=== PATIENT | female | born 1975 | race Caucasian/White ===

== ENCOUNTER → 2017-08-31 13:36 | Outpatient (CLI) | payer OTHER, MEDICAID, SELFPAY ==
[2017-09-01 16:47] LABS: HCG Quantitative /Beta subunit 769.43 mIU/mL
== END ==
PROVIDERS: Visit Provider Obstetrics & Gynecology
DX: N96 Recurrent pregnancy loss (principal); Z34.90 Encounter for supervision of normal pregnancy, unspecified, unspecified trimester
CPT/HCPCS: 36415; 84702

== ENCOUNTER → 2017-09-08 14:44 | Outpatient (CLI) | payer OTHER, MEDICAID, SELFPAY ==
[2017-09-08 17:09] LABS: Free T4, Direct Thyroxine 1.04 ng/dL (0.78-2.19)
[2017-09-08 17:23] LABS: Thyroid Stimulating Hormone 1.36 uIU/mL (0.47-4.68)
[2017-09-10 18:36] LABS: Progesterone 3.3 ng/mL
[2017-09-11 11:51] LABS: PTT-LA Screen 30 seconds (< OR = 40); dDRVVT Screen 34 seconds (< OR = 45)
[2017-09-13 13:51] LABS: Anti Cardio Antibody IgM <12 MPL; Anti Cardiolipin Antibody IgG <14 GPL
[2017-09-13 19:27] LABS: Protein C Antigen 122 % normal (70-140)
[2017-09-14 17:24] LABS: B2-Glycoprotein I IgA AB < 9 SAU (< OR = 20); B2-Glycoprotein I IgG AB < 9 SGU (< OR = 20); B2-Glycoprotein I IgM AB < 9 SMU (< OR = 20); Cardiolipin Ab IgA < 11 APL; Cardiolipin Ab IgG < 14 GPL; Cardiolipin Ab IgM < 12 MPL; Phos. Serine AB IgM < 25 U/mL; dRVVT Screen 32 seconds (< OR = 45)
== END ==
PROVIDERS: PCP Obstetrics & Gynecology; Visit Provider Obstetrics & Gynecology
DX: N96 Recurrent pregnancy loss (principal)
CPT/HCPCS: 36415; 81240; 81241; 81291; 84144; 84439; 84443; 85302; 85306; 85597; 85613; 85730; 86146; 86147; 86148

== ENCOUNTER → 2017-10-12 12:03 | Outpatient (CLI) | payer OTHER, MEDICAID, SELFPAY | PROVIDERS: PCP Obstetrics & Gynecology; Visit Provider Obstetrics & Gynecology | DX: N96 Recurrent pregnancy loss (principal) | CPT/HCPCS: 88230; 88262 ==

== ENCOUNTER → 2018-03-02 12:45 | Outpatient (CLI) | payer OTHER, MEDICAID, SELFPAY ==
[2018-03-02 13:51] LABS: Specimen Label NATERA
[2018-03-02 14:14] LABS: Add Manual Diff / Slide Review NO; Basophils Percent Auto 0.4 % (0-2); Eosinophils Percent Auto 0.8 % (2-4); Hematocrit 39.9 % (36-46); Hemoglobin 13.5 g/dL (12.0-16.0); Mean Corpuscular HGB Conc 33.8 % (30-36); Mean Corpuscular Hemoglobin 30.7 PG (26-34); Mean Corpuscular Volume 90.8 fL (80-100); Neutrophils Absolute Auto 7700 /uL (3000-5900); Neutrophils Percent Auto 79.8 % (50-75); Platelet Count 253 X10^3/uL (150-400); Red Blood Cell Count 4.39 X10^6/uL (4.0-5.2); Red Cell Distribution Width 13.2 % (11.6-14.8); White Blood Cell Count 9.6 X10^3/uL (4.5-11.0)
[2018-03-02 16:06] LABS: Hepatitis B Surface Antigen NEGATIVE s/c (NEGATIVE); Rubella Antibody IgG 8.9 IU/mL (>15)
[2018-03-02 16:28] LABS: HIV 1 and 2 Antibody NEGATIVE (NEGATIVE); Hep C Virus Ab w/Reflex Quant NEGATIVE s/c (NEGATIVE)
[2018-03-02 16:47] LABS: Urine N gonorrhoeae NOT DETECTED
[2018-03-02 17:11] LABS: Urine Chlamydia NOT DETECTED
[2018-03-05 17:37] LABS: HSV 2 IGG AB < 0.90 index (< 0.90); HSV1IGG < 0.90 index (< 0.90)
[2018-03-06 13:35] LABS: RPR Screen Nonreactive (Nonreactive)
== END ==
PROVIDERS: PCP Obstetrics & Gynecology; Visit Provider Obstetrics & Gynecology
DX: Z34.81 Encounter for supervision of other normal pregnancy, first trimester (principal); Z3A.10 10 weeks gestation of pregnancy
CPT/HCPCS: 36415; 80055; 86695; 86696; 86703; 86787; 86803; 86850; 86900; 86901; 87086; 87491; 87591

== ENCOUNTER → 2018-03-19 14:17 | Outpatient (CLI) | payer OTHER, MEDICAID, SELFPAY | PROVIDERS: PCP Obstetrics & Gynecology; Visit Provider Obstetrics & Gynecology | DX: O26.899 Other specified pregnancy related conditions, unspecified trimester (principal); R30.0 Dysuria | CPT/HCPCS: 87086 ==

== ENCOUNTER → 2018-04-27 16:26 | Outpatient (CLI) | payer OTHER, MEDICAID, SELFPAY ==
[2018-05-03 12:48] LABS: AFP, Serum 28.6 ng/mL; Calc Gestational Age 18.1; Est Date Determined by US; Maternal Weight 239 lbs; Number of Fetuses 1; Prev Pregnancies Down Syndrome NOT GIVEN
== END ==
PROVIDERS: Family Provider Obstetrics & Gynecology; Visit Provider Obstetrics & Gynecology
DX: Z34.82 Encounter for supervision of other normal pregnancy, second trimester (principal); Z20.828 Contact with and (suspected) exposure to other viral communicable diseases
CPT/HCPCS: 36415; 82105; 86765

== ENCOUNTER → 2018-05-24 14:10 | Outpatient (CLI) | payer OTHER, MEDICAID, SELFPAY ==
--- NOTE | 2018-05-24 14:11 | DI.US.S_ITS ---
PROCEDURE: US OB >= 14 WEEKS FETUS INDICATIONS: ANATOMY OUTSIDE/PRIOR DATING DATA: Last menstrual period (LMP): 12/26/17. LMP-based estimated date of delivery (GILMAR): 10/02/18. First dating scan (date and location): 02/16/[address] Muller. Estimated date of delivery (GILMAR) from first dating scan: 09/27/18, by Dr. Muller. TECHNIQUE: Real-time scanning was performed of the fetus, with image documentation and biometric measurements. Endovaginal scanning: Not needed for this study COMPARISON: None. FINDINGS: General: A single living intrauterine gestation is present. Presentation: Transverse head left. Placenta: Placental position is posterior, with what appears to be a marginal previa. Amniotic fluid index: 30.2 cm, normal range is 5-24 cm. heart rate: 158 beats per minute. Maternal cervical canal: 3.9 cm long. Normal lower limit is 2.5 cm. biometrics: Biparietal diameter: 5.2 cm, 21 weeks 6 days Head circumference: 19.8 cm, 22 weeks 0 days Abdominal circumference: 17.5 cm, 22 weeks 3 days Femur length: 3.9 cm, 22 weeks 4 days Estimated gestational age from initial scan: 22 weeks 0 days Composite gestational age from present scan: 22 weeks 2 days Estimated weight and percentile: 502 g, 66th percentile Measurement variability for biometric dating: +/- 7 days from 14 weeks to 15 weeks 6 days gestation, +/- 10 days from 16 weeks to 21 weeks 6 days gestation, +/- 2 weeks from 22 weeks to 27 weeks 6 days gestation, +/- 3 weeks for 28 weeks gestation or later. weight reference: 4500 g or EFW >90/95% is considered macrosomia or large for gestational age. EFW <10% is small for gestational age. EFW 5% or less is considered intra-uterine growth restriction. Anatomic survey: Neuro: Ventricles are non-dilated at less than 10 mm. Cisterna magna is normal at 3-11 mm. Cerebellum is normal in size and morphology. Nuchal skin fold: Normal at less than 6 mm between 14-21 weeks gestational age. Face: Nose and lips, facial profile are not seen due to positioning. Spine: No evidence for spina bifida. Heart: 4-chambered heart is present, with normal ventricular outflow tracts. Diaphragm: Diaphragm is intact. Stomach: Left-sided stomach is present. Kidneys: No hydronephrosis. Normal is less than 5 mm in 2nd trimester, less than 7 mm in 3rd trimester. Cord: 3-vessel cord has orthotopic insertion. Bladder: Normal in size. Extremities: All 4 extremities identified. IMPRESSION: 1. Appropriate interval growth, no anomalies seen. facial region is not visualized due to positioning during time of scanning. Followup completion of anatomic survey to assess for facial area could be performed in one-2 weeks. 2. There is a posterior placenta that extends far inferiorly. The exact anatomic detail of the placenta in relationship to the cervical os is not established I this study. During the followup anticipated completion of anatomic survey translabial scanning is recommended to definitively established absence of placenta previa. Dictated by: Ramiro Rose M.D. on 05/24/2018 at 15:19 Approved by: Ramiro Rose M.D. on 05/24/2018 at 15:40
== END ==
PROVIDERS: Family Provider Obstetrics & Gynecology; PCP Obstetrics & Gynecology; Visit Provider Obstetrics & Gynecology
DX: Z34.82 Encounter for supervision of other normal pregnancy, second trimester (principal); Z3A.22 22 weeks gestation of pregnancy
CPT/HCPCS: 76811

== ENCOUNTER → 2018-06-21 15:57 | Outpatient (CLI) | payer OTHER, MEDICAID, SELFPAY ==
[2018-06-21 18:03] LABS: Hematocrit 36.3 % (36-46); Hemoglobin 12.1 g/dL (12.0-16.0)
[2018-06-21 18:28] LABS: GTT (PREG) 1 Hour PP 50gm Dose 110 mg/dL (76-139)
== END ==
PROVIDERS: PCP Obstetrics & Gynecology; Visit Provider Obstetrics & Gynecology
DX: O26.892 Other specified pregnancy related conditions, second trimester (principal); Z3A.26 26 weeks gestation of pregnancy; Z67.91 Unspecified blood type, Rh negative
CPT/HCPCS: 36415; 82950; 85014; 85018; 86850

== ENCOUNTER 2018-07-04 20:15 | Outpatient (CLI) | payer OTHER, MEDICAID, SELFPAY ==
[2018-07-04 20:20] VITALS: BP 131/69; PULSE 92; RESP 18; TEMP 36.2
[2018-07-04 20:46] VITALS: BP 131/69
== END 2018-07-04 20:46 | disposition home or self-care (01) ==
LOC: OB 07-05 16:26
PROVIDERS: PCP Obstetrics & Gynecology; Visit Provider Obstetrics & Gynecology
DX: O44.22 Partial placenta previa NOS or without hemorrhage, second trimester (principal); Z3A.27 27 weeks gestation of pregnancy; O26.22 Pregnancy care for patient with recurrent pregnancy loss, second trimester
CPT/HCPCS: 59050; 84112; G0378; G0379

== ENCOUNTER 2018-08-03 12:23 | Outpatient (CLI) | payer OTHER, MEDICAID, SELFPAY ==
--- NOTE | 2018-08-03 18:34 | PM.OBTRLD ---
Visit Information Visit Information Date of evaluation: 08/03/18 Primary OB Provider: Darlin Muller Reason for Evaluation: Yes non-stress test non-stress test reason: other (AMA, MTHFR) [facility] Medical History (Updated 08/03/18 @ 18:37 by Darlin Muller MD) Cervical high risk HPV (human papillomavirus) test positive (Resolved) Social History Smoking Status: Never smoker Social History Smoking Status: Never smoker Evaluation Evaluation Baseline heart rate: 145 Variability: Moderate (11-25) monitor accelerations: Present monitor decelerations: Absent Diagnosis, Plan/Disposition Final Diagnosis (1) 32 weeks gestation of : Current Visit: No Status: Acute (2) Methylenetetrahydrofolate reductase (MTHFR) gene mutation: Current Visit: No Status: Acute (3) Elderly multigravida: Current Visit: No Status: Acute Plan/Disposition Plan: Assessment 43-year-old 7 para 2 at 32 weeks gestation Elderly multigravida History of multiple losses MTHFR Category 1 nonstress test Plan: Follow-up in 2 weeks kick counts OB Disposition: home
--- NOTE | 2018-08-03 18:38 | P.TNLD_ITS ---
Visit Information Visit Information Date of evaluation: 08/03/18 Primary OB Provider: Darlin Muller Reason for Evaluation: Yes non-stress test non-stress test reason: other (AMA, MTHFR) [facility] Medical History (Updated 08/03/18 @ 18:37 by Darlin Muller MD) Cervical high risk HPV (human papillomavirus) test positive (Resolved) Social History Smoking Status: Never smoker Social History Smoking Status: Never smoker Evaluation Evaluation Baseline heart rate: 145 Variability: Moderate (11-25) monitor accelerations: Present monitor decelerations: Absent Diagnosis, Plan/Disposition Final Diagnosis (1) 32 weeks gestation of : Current Visit: No Status: Acute (2) Methylenetetrahydrofolate reductase (MTHFR) gene mutation: Current Visit: No Status: Acute (3) Elderly multigravida: Current Visit: No Status: Acute Plan/Disposition Plan: Assessment 43-year-old 7 para 2 at 32 weeks gestation Elderly multigravida History of multiple losses MTHFR Category 1 nonstress test Plan: Follow-up in 2 weeks kick counts OB Disposition: home
== END 2018-08-03 13:25 | disposition home or self-care (01) ==
LOC: LABOR 12:51 → OB 08-05 10:52
PROVIDERS: PCP Obstetrics & Gynecology; Visit Provider Obstetrics & Gynecology
DX: O09.529 Supervision of elderly multigravida, unspecified trimester (principal); E72.12 Methylenetetrahydrofolate reductase deficiency; Z3A.32 32 weeks gestation of pregnancy
CPT/HCPCS: 59025; G0378; G0379

== ENCOUNTER 2018-08-13 18:33 | Outpatient (CLI) | payer OTHER, MEDICAID, SELFPAY ==
--- NOTE | 2018-08-14 04:15 | PM.OBTRLD ---
Visit Information Visit Information Date of evaluation: 08/13/18 Primary OB Provider: Darlin Muller Reason for Evaluation: Yes non-stress test non-stress test reason: decreased movement [facility] Medical History (Updated 08/14/18 @ 04:17 by Darlin Muller MD) Cervical high risk HPV (human papillomavirus) test positive (Resolved) Social History Smoking Status: Never smoker Social History Smoking Status: Never smoker Evaluation Evaluation Baseline heart rate: 130 Variability: Moderate (11-25) monitor accelerations: Present monitor decelerations: Absent Contraction Frequency (minutes): 0 Category of Tracing: I Diagnosis, Plan/Disposition Final Diagnosis (1) 34 weeks gestation of : Current Visit: No Status: Acute (2) Decreased movement: Current Visit: No Status: Acute Plan/Disposition Plan: Assessment: 43-year-old at 34 weeks gestation with decreased movement Reactive nonstress test Plan: Discharged home Follow-up in 2 weeks for scheduled OB appointment kick counts discussed OB Disposition: home
--- NOTE | 2018-08-14 04:18 | P.TNLD_ITS ---
Visit Information Visit Information Date of evaluation: 08/13/18 Primary OB Provider: Darlin Muller Reason for Evaluation: Yes non-stress test non-stress test reason: decreased movement [facility] Medical History (Updated 08/14/18 @ 04:17 by Darlin Muller MD) Cervical high risk HPV (human papillomavirus) test positive (Resolved) Social History Smoking Status: Never smoker Social History Smoking Status: Never smoker Evaluation Evaluation Baseline heart rate: 130 Variability: Moderate (11-25) monitor accelerations: Present monitor decelerations: Absent Contraction Frequency (minutes): 0 Category of Tracing: I Diagnosis, Plan/Disposition Final Diagnosis (1) 34 weeks gestation of : Current Visit: No Status: Acute (2) Decreased movement: Current Visit: No Status: Acute Plan/Disposition Plan: Assessment: 43-year-old at 34 weeks gestation with decreased movement Reactive nonstress test Plan: Discharged home Follow-up in 2 weeks for scheduled OB appointment kick counts discussed OB Disposition: home
== END 2018-08-13 20:25 | disposition home or self-care (01) ==
LOC: OB 08-17 16:36
PROVIDERS: PCP Obstetrics & Gynecology; Visit Provider Obstetrics & Gynecology
DX: O36.8190 Decreased fetal movements, unspecified trimester, not applicable or unspecified (principal); Z3A.34 34 weeks gestation of pregnancy
CPT/HCPCS: 59025; 59050; G0378; G0379

== ENCOUNTER → 2018-08-30 15:47 | Outpatient (CLI) | payer OTHER, MEDICAID, SELFPAY ==
[2018-08-31 21:11] LABS: Strep Grp B PCR NEG for Grp B Strep
== END ==
PROVIDERS: PCP Obstetrics & Gynecology; Visit Provider Obstetrics & Gynecology
DX: Z34.83 Encounter for supervision of other normal pregnancy, third trimester (principal)
CPT/HCPCS: 87653

== ENCOUNTER 2018-08-30 16:32 | Outpatient (CLI) | payer OTHER, MEDICAID, SELFPAY | END 2018-08-30 17:15 | disposition home or self-care (01) | LOC: LABOR 17:23 → OB 08-31 16:56 | PROVIDERS: PCP Obstetrics & Gynecology; Visit Provider Obstetrics & Gynecology | DX: O26.20 Pregnancy care for patient with recurrent pregnancy loss, unspecified trimester (principal); O09.523 Supervision of elderly multigravida, third trimester; Z3A.36 36 weeks gestation of pregnancy | CPT/HCPCS: 59025; 87653; G0378; G0379 ==

== ENCOUNTER 2018-09-07 14:37 | Outpatient (CLI) | payer OTHER, MEDICAID, SELFPAY | END 2018-09-07 15:44 | disposition home or self-care (01) | LOC: LABOR 15:31 → OB 09-08 14:07 | PROVIDERS: PCP Obstetrics & Gynecology; Visit Provider Obstetrics & Gynecology | DX: O26.20 Pregnancy care for patient with recurrent pregnancy loss, unspecified trimester (principal); N93.8 Other specified abnormal uterine and vaginal bleeding; Z3A.38 38 weeks gestation of pregnancy | CPT/HCPCS: 59025; G0378; G0379 ==

== ENCOUNTER 2018-09-13 14:20 | Outpatient (CLI) | payer OTHER, MEDICAID, SELFPAY | END 2018-09-13 15:30 | disposition home or self-care (01) | LOC: LABOR 15:22 → OB 09-21 12:05 | PROVIDERS: PCP Obstetrics & Gynecology; Visit Provider Obstetrics & Gynecology | DX: O13.3 Gestational [pregnancy-induced] hypertension without significant proteinuria, third trimester (principal); Z3A.38 38 weeks gestation of pregnancy | CPT/HCPCS: 59025; G0378; G0379 ==

== ENCOUNTER 2018-09-16 20:48 | Inpatient (IN) | payer OTHER, MEDICAID, SELFPAY ==
[2018-09-16] VITALS (7 sets, daily range): BP systolic 86–108; BP diastolic 55–69; PULSE 66–75; RESP 9–18; TEMP 36.1–36.3; O2SAT 99–100
[2018-09-16] MEDS: LACTATED RINGERS 1,000 ML 100 ML IV ×2 (21:00→22:42)
[2018-09-16 21:05] LABS: Add Manual Diff / Slide Review NO; Basophils Absolute Auto 100 /uL (0-100); Basophils Percent Auto 0.6 % (0-2); Eosinophils Absolute Auto 100 /uL (0-450); Eosinophils Percent Auto 1.2 % (2-4); Hematocrit 35.9 % (36-46); Hemoglobin 12.3 g/dL (12.0-16.0); Lymphocytes Absolute Auto 1900 /uL (1100-4500); Lymphocytes Percent Auto 18.5 % (25-40); Mean Corpuscular HGB Conc 34.2 % (30-36); Mean Corpuscular Volume 90.6 fL (80-100); Monocytes Absolute Auto 600 /uL (0-900); Monocytes Percent Auto 5.5 % (3-14); Neutrophils Absolute Auto 7400 /uL (1500-7000); Neutrophils Percent Auto 74.2 % (50-75); Platelet Count 204 X10^3/uL (150-400); Red Blood Cell Count 3.96 X10^6/uL (4.0-5.2); Red Cell Distribution Width 14.7 % (11.6-14.8)
[2018-09-16] MEDS: METOCLOPRAMIDE 10 MG/2 ML INJ IV (21:15)
[2018-09-16] MEDS: CITRIC ACID/SODIUM CITRATE 15 ML SOLUTION PO (21:15)
--- NOTE | 2018-09-16 21:18 | PM.OBHP.1 ---
OB HPI Date/Time Date of admission: 09/16/18 Date Patient Seen: 09/16/18 Time Patient Seen: 21:19 History of Present Condition Chief complaint: [id number] : 7 Para: 2 Estimated Date of Delivery: 09/27/18 Estimated Gestational Age (weeks): 38+ 3 Narrative: Roxana Patel is a 43 year old female 7 para 2 at 38 3/7weeks gestation who presented via ambulance with bright red bleeding per vagina. Per the ambulance crew proximally 400 cc of bright red blood. Indications Operative indications ( section): placenta previa (Bright red bleeding) History of Present care: good care, initiated at week # (9) and number of visits (12) Dating criteria: LMP confirmed by 1st trimester US Ultrasounds: normal 1st trimester US and normal mid trimester US Abnormal ultrasound findings: Marginal previa Obstetrical complications: other (marginal previa) Medical complications: other (MTHFR) Preadmission Labs Blood type: 0 (-) negative -: Antibody screen: negative, GBS status: negative, HBsAG: negative, HIV: negative, HSV 1: negative, HSV 2: negative and RPR/VDLR: negative -: Chlamydia screen: not detected and Gonorrhea screen: not detected -: Rubella: not immune and Varicella: immune HCT: 36.3 HCAB: negative Cell-free DNA: Normal Urine: Negative 1 hr GTT: 110 Prior (ies) History: 1 2 Emergency C section for prolapsed cord Evaluation Evaluation Baseline heart rate: 135 Variability: Moderate (11-25) monitor accelerations: Present monitor decelerations: Absent Contraction Frequency (minutes): 5 Uterine Contraction Intensity: Mild Category of Tracing: I Laboratory results: Laboratory Tests 09/16/18 09/16/18 20:30 20:30 WBC 10.0 RBC 3.96 L Hgb 12.3 Hct 35.9 L MCV 90.6 MCH 31.0 MCHC 34.2 RDW 14.7 Plt Count 204 Neut % (Auto) 74.2 Lymph % (Auto) 18.5 L [place] % (Auto) 5.5 Eos % (Auto) 1.2 L Baso % (Auto) 0.6 Neut # (Auto) 7400 H Lymph # (Auto) 1900 [place] # (Auto) 600 Eos # (Auto) 100 Baso # (Auto) 100 Crossmatch See Detail [facility] Medical History (Updated 09/16/18 @ 21:24 by Darlin Muller MD) MTHFR (methylene THF reductase) deficiency and homocystinuria (Acute) 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, antepartum (Acute) Cervical high risk HPV (human papillomavirus) test positive (Resolved) Surgical History (Updated 09/16/18 @ 21:25 by Darlin Muller MD) History of section (Acute) Social History Smoking Status: Never smoker Social History Smoking Status: Never smoker Meds Home Medications Medication Instructions Recorded Confirmed Type aspirin 81 mg tablet,delayed 81 mg PO DAILY 08/31/17 07/04/18 History release progesterone micronized 200 mg 200 mg PO DAILY #30 cap 02/01/18 Rx capsule heparin (porcine) 5,000 unit/mL 5,000 unit SUBCUT BID #60 ml 08/30/18 08/30/18 Rx injection syringe Allergies Allergy/AdvReac Type Severity Reaction Status Date / Time No Known Drug Allergies Allergy Verified 07/04/18 21:08 Exam Vital Signs (past 8 hours): Generally: Patient is sitting up in bed, in moderate distress secondary to anxiety about bleeding Lungs: Clear to auscultation bilaterally Cardiovascular: Regular rate and rhythm Fundal height: 39 cm Estimated weight: 8 lb Extremities: Negative Homans, no edema Perineum: Approximately 100 cc of blood on a towel Objective Labs Result Diagrams: 09/16/18 20:30 Labs: Laboratory Results - last 24 hr 09/16/18 09/16/18 20:30 20:30 WBC 10.0 RBC 3.96 L Hgb 12.3 Hct 35.9 L MCV 90.6 MCH 31.0 MCHC 34.2 RDW 14.7 Plt Count 204 Neut % (Auto) 74.2 Lymph % (Auto) 18.5 L [place] % (Auto) 5.5 Eos % (Auto) 1.2 L Baso % (Auto) 0.6 Neut # (Auto) 7400 H Lymph # (Auto) 1900 [place] # (Auto) 600 Eos # (Auto) 100 Baso # (Auto) 100 Crossmatch See Detail Assessment and Plan Assessment and Plan Assessment and Plan narrative: Assessment: 43-year-old 7 para 2 at 38-,3/7 weeks gestation with a previous section who presented with bright red bleeding per vagina approximately 400 cc Marginal previa Plan: Emergent low-transverse section The risks, benefits, and alternatives to the procedure were explained to the patient. The risks including bleeding, infection, injury to the bowel, bladder, or ureters. She understands these risks and agrees to proceed. A full par Q was held and consent form was signed. Time Spent with Patient Total time spent with greater than 50% in coordination of care (as documented) at patient's floor/unit and/or counseling patient:: 15-24 minutes
[2018-09-16 21:22] LABS: Prothrombin Time 11.1 SECONDS (10.1-12.7)
[2018-09-16 21:25] LABS: PTT Partial Thromboplastin Tim 26 SECONDS (26.4-36.2)
--- NOTE | 2018-09-16 21:27 | P.HPOB_ITS ---
OB HPI Date/Time Date of admission: 09/16/18 Date Patient Seen: 09/16/18 Time Patient Seen: 21:19 History of Present Condition Chief complaint: [id number] : 7 Para: 2 Estimated Date of Delivery: 09/27/18 Estimated Gestational Age (weeks): 38+ 3 Narrative: Roxana Patel is a 43 year old female 7 para 2 at 38 3/7weeks gestation who presented via ambulance with bright red bleeding per vagina. Per the ambulance crew proximally 400 cc of bright red blood. Indications Operative indications ( section): placenta previa (Bright red bleeding) History of Present care: good care, initiated at week # (9) and number of visits (12) Dating criteria: LMP confirmed by 1st trimester US Ultrasounds: normal 1st trimester US and normal mid trimester US Abnormal ultrasound findings: Marginal previa Obstetrical complications: other (marginal previa) Medical complications: other (MTHFR) Preadmission Labs Blood type: 0 (-) negative -: Antibody screen: negative, GBS status: negative, HBsAG: negative, HIV: negative, HSV 1: negative, HSV 2: negative and RPR/VDLR: negative -: Chlamydia screen: not detected and Gonorrhea screen: not detected -: Rubella: not immune and Varicella: immune HCT: 36.3 HCAB: negative Cell-free DNA: Normal Urine: Negative 1 hr GTT: 110 Prior (ies) History: 1 2 Emergency C section for prolapsed cord Evaluation Evaluation Baseline heart rate: 135 Variability: Moderate (11-25) monitor accelerations: Present monitor decelerations: Absent Contraction Frequency (minutes): 5 Uterine Contraction Intensity: Mild Category of Tracing: I Laboratory results: Laboratory Tests 09/16/18 09/16/18 20:30 20:30 WBC 10.0 RBC 3.96 L Hgb 12.3 Hct 35.9 L MCV 90.6 MCH 31.0 MCHC 34.2 RDW 14.7 Plt Count 204 Neut % (Auto) 74.2 Lymph % (Auto) 18.5 L [place] % (Auto) 5.5 Eos % (Auto) 1.2 L Baso % (Auto) 0.6 Neut # (Auto) 7400 H Lymph # (Auto) 1900 [place] # (Auto) 600 Eos # (Auto) 100 Baso # (Auto) 100 Crossmatch See Detail [facility] Medical History (Updated 09/16/18 @ 21:24 by Darlin Muller MD) MTHFR (methylene THF reductase) deficiency and homocystinuria (Acute) 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, antepartum (Acute) Cervical high risk HPV (human papillomavirus) test positive (Resolved) Surgical History (Updated 09/16/18 @ 21:25 by Darlin Muller MD) History of section (Acute) Social History Smoking Status: Never smoker Social History Smoking Status: Never smoker Meds Home Medications Medication Instructions Recorded Confirmed Type aspirin 81 mg tablet,delayed 81 mg PO DAILY 08/31/17 07/04/18 History release progesterone micronized 200 mg 200 mg PO DAILY #30 cap 02/01/18 Rx capsule heparin (porcine) 5,000 unit/mL 5,000 unit SUBCUT BID #60 ml 08/30/18 08/30/18 Rx injection syringe Allergies Allergy/AdvReac Type Severity Reaction Status Date / Time No Known Drug Allergies Allergy Verified 07/04/18 21:08 Exam Vital Signs (past 8 hours): Generally: Patient is sitting up in bed, in moderate distress secondary to anxiety about bleeding Lungs: Clear to auscultation bilaterally Cardiovascular: Regular rate and rhythm Fundal height: 39 cm Estimated weight: 8 lb Extremities: Negative Homans, no edema Perineum: Approximately 100 cc of blood on a towel Objective Labs Result Diagrams: 09/16/18 20:30 Labs: Laboratory Results - last 24 hr 09/16/18 09/16/18 20:30 20:30 WBC 10.0 RBC 3.96 L Hgb 12.3 Hct 35.9 L MCV 90.6 MCH 31.0 MCHC 34.2 RDW 14.7 Plt Count 204 Neut % (Auto) 74.2 Lymph % (Auto) 18.5 L [place] % (Auto) 5.5 Eos % (Auto) 1.2 L Baso % (Auto) 0.6 Neut # (Auto) 7400 H Lymph # (Auto) 1900 [place] # (Auto) 600 Eos # (Auto) 100 Baso # (Auto) 100 Crossmatch See Detail Assessment and Plan Assessment and Plan Assessment and Plan narrative: Assessment: 43-year-old 7 para 2 at 38-,3/7 weeks gestation with a previous section who presented with bright red bleeding per vagina approximately 400 cc Marginal previa Plan: Emergent low-transverse section The risks, benefits, and alternatives to the procedure were explained to the pa tient. The risks including bleeding, infection, injury to the bowel, bladder, or ureters. She understands these risks and agrees to proceed. A full par Q was held and consent form was signed. Time Spent with Patient Total time spent with greater than 50% in coordination of care (as documented) at patient's floor/unit and/or counseling patient:: 15-24 minutes
--- NOTE | 2018-09-16 21:27 | PM.PREOP ---
Pre-operative Note Interval Note History & Physical reviewed/Exam performed by Physician: Yes Changes to H&P: No
[2018-09-16] MEDS: LACTATED RINGERS 1,000 ML 500 ML IV (21:30)
[2018-09-16] MEDS: FAMOTIDINE 20 MG/50 ML PIGGYBACK 200 MG IV (21:45)
[2018-09-16] MEDS: CEFAZOLIN 2 GM/100 ML FROZ.PIGGY IV (21:45)
[2018-09-16] MEDS: ACETAMINOPHEN IV 1,000 MG/100 ML VIAL 400 MG IV (22:30)
--- NOTE | 2018-09-16 22:30 | SUR.OPER ---
Viable female delivered at 22:25. Cord blood x2 and placenta sent with L&D RN.
--- NOTE | 2018-09-16 23:12 | P.OP_ITS ---
Operative Date/Time/Diagnoses Date of procedure: 09/16/18 Time of procedure: 23:08 Pre-op diagnosis: 38+ 3 weeks gestation Bright red vaginal bleeding Previous section Post-op diagnosis: same Procedure: Procedures Operation Date: 09/17/18 07:45 Actual Procedures Side Surgeon p Section - Repeat Darlin Muller MD Indications: Bright red vaginal bleeding at 38-,3/7 weeks gestation Previous section Scheduled for repeat section tomorrow morning Surgeon: Darlin Muller Supervisor Molding: Sharon Lynne Anesthesia Type: Spinal Operative Notes Findings: Live female infant Large veins over the lower uterine segment Normal ovaries and tubes Closure Type: primary Specimen(s): other (Cord bloods, placenta) Applied: catheter Estimated blood loss (mL): 800 Blood products transfused: none Procedure in detail: The patient was taken to the operating room where she was placed in the seated position. Spinal anesthesia with Duramorph was administered. The patient was then placed in the dorsal supine position with a leftward tilt. She was prepped and draped in the usual sterile fashion. A timeout was performed. After spinal analgesia was found to be adequate, a Pfannenstiel skin incision was made through the previous incision and carried through to the underlying layer fascia. The fascia was nicked in the midline, and the incision extended bilaterally with the Garsia scissors. The superior aspect of the fascial incision was grasped with a Agency clamps, elevated, and the underlying rectus muscles dissected off sharply and bluntly. Attention was then turned to the inferior aspect of this incision which in a similar fashion was grasped with a Nuria clamps, elevated, and the underlying rectus muscles dissected off sharply and bluntly. The rectus muscles were in the midline. The peritoneum was identified, grasped between 2 hemostats, and entered sharply with the Metzenbaum scissors. This incision was extended superiorly and inferiorly with good visualization of the bladder. The bladder blade was inserted. The vesicouterine peritoneum was identified, grasped with the pickup, and entered sharply with the Metzenbaum scissors. This incision was extended bilaterally, and the bladder flap was created digitally. The bladder blade was reinserted. There were found to be very large veins over the lower uterine segment. The incision was made in a window where there were no veins. The lower uterine segment was incised in a transverse fashion with the scalpel. Upon entering the amniotic sac there was moderate amount of clear amniotic fluid. The infant's head was delivered with vacuum assistance. The nose and mouth were suctioned with bulb suction. The remainder of the body delivered without difficulty. The cord was double clamped and cut. The was handed off to waiting RN, RT, and Pediatrics. The placenta was delivered manually. The uterus was cleared of all clots and debris. The uterine incision was repaired with #1 chromic in a running interlocking fashion, and a second layer the same suture was used for an imbricating layer. There was a bleeder at the left edge of the incision and a [id number] suture with 0 Vicryl was placed for hemostasis. Hemostasis was achieved. The tubes and ovaries were examined and were found to be normal. The gutters were cleared of all clots and debris. The bladder flap was reapproximated using 2-0 Vicryl in a running fashion. The parietal peritoneum was closed using 2-0 Vicryl in a running fashion. The fascia was reapproximated using 0 Vicryl in a running fashion. The subcutaneous layer was copiously irrigated with warm normal saline. 5 simple interrupted sutures of 3-0 Vicryl were placed to reapproximate the subcutaneous layer. The skin was closed with 4-0 undyed Vicryl in a subcuticular fashion. There was a skin tag just below the left edge of the incision on a pedicle. This was excised with the Bovie. Steri-Strips were placed. An Aquacell dressing was romie sonu. The uterus was expressed of a small amount of old blood. Sponge, lap, and instrument counts were correct x-2. The patient tolerated the procedure well, and was taken to PACU in stable condition. Complications: none Post-operative Condition: stable Disposition: PACU Plan for aftercare: To the Center after recovery
[2018-09-16] MEDS: ONDANSETRON 4 MG/2 ML INJ IV (23:35)
--- NOTE | 2018-09-16 23:47 | SUR.PHASEI ---
IV IN RIGHT AC SITE CLEAR AND INFUSING WITHOUT DIFFICULTLY. ANESTHESIA AT BEDSIDE DURING PT TIME IN PACU VISITING WITH PT. PT IN STABLE CONDITION, VSS. REPORT CALLED TO TAYLA BOLDEN IN CENTER.
--- NOTE | 2018-09-17 00:02 | SUR.PHASEI ---
PT TRANSFERRED TO CENTER IN STABLE CONDITION. PT ALERT AND TALKING TO RN DURING TRANSPORT. PT IN ROOM UPON ARRIVAL. BEDSIDE REPORT GIVEN TO TAYLA BOLDEN IN CENTER UPON ARRIVAL TO ROOM. TRANSFERRED CARE OF PT TO TAYLA BOLDEN AT THAT TIME.
[2018-09-17] MEDS: LACTATED RINGERS 1,000 ML 100 ML IV ×3 (01:10→11:34)
[2018-09-17 06:15] VITALS: BP 124/77
[2018-09-17 06:32] LABS: Add Manual Diff / Slide Review NO; Basophils Absolute Auto 0 /uL (0-100); Basophils Percent Auto 0.2 % (0-2); Eosinophils Absolute Auto 100 /uL (0-450); Eosinophils Percent Auto 0.7 % (2-4); Hematocrit 28.6 % (36-46); Hemoglobin 9.7 g/dL (12.0-16.0); Lymphocytes Absolute Auto 1400 /uL (1100-4500); Lymphocytes Percent Auto 11.2 % (25-40); Mean Corpuscular HGB Conc 33.8 % (30-36); Mean Corpuscular Hemoglobin 30.8 PG (26-34); Monocytes Absolute Auto 600 /uL (0-900); Monocytes Percent Auto 5.2 % (3-14); Neutrophils Absolute Auto 10200 /uL (1500-7000); Neutrophils Percent Auto 82.7 % (50-75); Platelet Count 156 X10^3/uL (150-400); Red Blood Cell Count 3.14 X10^6/uL (4.0-5.2); Red Cell Distribution Width 14.5 % (11.6-14.8); White Blood Cell Count 12.4 X10^3/uL (4.5-11.0)
[2018-09-17] MEDS: METOCLOPRAMIDE 10 MG/2 ML INJ IV (09:49)
[2018-09-17] MEDS: OXYCODONE/ACETAMINOPHEN 5/325 TABLET 2 TAB PO ×4 (09:51→21:28)
[2018-09-17] MEDS: IBUPROFEN 600 MG TABLET PO ×3 (11:27→23:22)
--- NOTE | 2018-09-17 11:48 | PM.OBPN.1 ---
Subjective - OB Patient comments: other (Slight dizziness) [place] baby status: doing well [place] feeding status: exclusively breast feeding Date Patient Seen: 09/17/18 Time Patient Seen: 11:49 Interval history: Patient is a 43-year-old postop day # 0-1 status post emergent repeat section due to brisk vaginal bleeding Pain is well controlled. She has had slight dizziness. She has tolerated a diet. Exam Vital Signs (past 8 hours): - 09/17/18 06:15 Blood Pressure 124/77 Oxygen Delivery Method Room Air Narrative Exam Narrative: Generally: Patient lying in bed, holding , no acute distress Lungs: Clear to auscultation bilaterally Cardiovascular: Regular rate and rhythm Abdomen: Soft, good bowel sounds Fundus: Firm at U Incision: Clean dry and intact with Aquacel dressing Extremities: Negative Homans, trace edema Objective Labs Result Diagrams: 09/17/18 06:20 Labs: Laboratory Results - last 24 hr 09/16/18 09/16/18 09/16/18 20:30 20:30 20:30 WBC 10.0 RBC 3.96 L Hgb 12.3 Hct 35.9 L MCV 90.6 MCH 31.0 MCHC 34.2 RDW 14.7 Plt Count 204 Neut % (Auto) 74.2 Lymph % (Auto) 18.5 L [place] % (Auto) 5.5 Eos % (Auto) 1.2 L Baso % (Auto) 0.6 Neut # (Auto) 7400 H Lymph # (Auto) 1900 [place] # (Auto) 600 Eos # (Auto) 100 Baso # (Auto) 100 PT 11.1 INR 1.0 APTT 26 L Blood Type O Negative Antibody Screen Negative Maternal Bleed Crossmatch See Detail 09/17/18 09/17/18 06:20 06:20 WBC 12.4 H RBC 3.14 L Hgb 9.7 L Hct 28.6 L MCV 91.0 MCH 30.8 MCHC 33.8 RDW 14.5 Plt Count 156 Neut % (Auto) 82.7 H Lymph % (Auto) 11.2 L [place] % (Auto) 5.2 Eos % (Auto) 0.7 L Baso % (Auto) 0.2 Neut # (Auto) 93253 H Lymph # (Auto) 1400 [place] # (Auto) 600 Eos # (Auto) 100 Baso # (Auto) 0 PT INR APTT Blood Type Antibody Screen Maternal Bleed Negative Crossmatch Assessment & Plan Plan plan OB: routine postop care Time Spent With Patient Total time spent is greater than 50% in coordination of care (as documented) at patient's floor/unit and/or counseling patient: 15-24 minutes
[2018-09-17] MEDS: DOCUSATE 250 MG CAPSULE PO (13:44)
[2018-09-17] MEDS: RHO(D) IMMUNE GLOBULIN 1,500 UNIT SYRINGE 1500 UNIT IM (14:33)
[2018-09-18] MEDS: OXYCODONE/ACETAMINOPHEN 5/325 TABLET 2 TAB PO ×5 (01:34→21:07)
[2018-09-18] MEDS: IBUPROFEN 600 MG TABLET PO ×3 (05:33→21:07)
--- NOTE | 2018-09-18 09:21 | PM.OBPN.1 ---
Subjective - OB Narrative: The pt reports that she is overall feeling well. She does have significant discomfort when moving, but this is helped by the narcotic pain medications. She does not believe she has passed flatus yet, but can feel her bowels moving. Her lochia is decreasing appropriately. She has been able to void without difficulty. Date Patient Seen: 09/18/18 Time Patient Seen: 08:30 Exam Vital Signs (past 8 hours): Oxygen Delivery Method Room Air Narrative Exam Narrative: Gen: NAD, sitting comfortably in bed, appears well CV: RRR, no murmurs Resp: clear to auscultation bilaterally Abd: soft, nondistended, appropriately tender, dressing c/d/i, fundus firm and > 3cm below umbilicus Ext: trace edema Objective Labs Result Diagrams: 09/17/18 06:20 Labs: Laboratory Results - last 24 hr 09/16/18 20:30 Crossmatch See Detail Assessment & Plan (1) S/P : Status: Acute Current Visit: Yes Plan Comments: 43yo POD #2 s/p emergent repeat due to vaginal bleeding in the setting of marginal placenta previa. complicated by MTHFR deficiency on Lovenox. Pt doing well overall. - Normal postoperative/ care - support - Plan for d/c tomorrow Time Spent With Patient Total time spent is greater than 50% in coordination of care (as documented) at patient's floor/unit and/or counseling patient: 15-24 minutes
[2018-09-18] MEDS: PRENATAL VIT,CALC/IRON/FOLIC 1 TABLET 1 TAB PO (10:54)
[2018-09-18 10:55] VITALS: TEMP 36.8
[2018-09-18] MEDS: DOCUSATE 250 MG CAPSULE PO (10:55)
[2018-09-18 15:03] VITALS: TEMP 36.5
[2018-09-19] MEDS: IBUPROFEN 600 MG TABLET PO ×2 (03:09→09:22)
[2018-09-19] MEDS: OXYCODONE/ACETAMINOPHEN 5/325 TABLET 2 TAB PO ×2 (03:10→09:21)
--- NOTE | 2018-09-19 08:43 | P.DS_ITS ---
Discharge Providers Date of admission: 09/16/18 20:48 Discharge Date: 09/19/18 Primary care physician: Darlin Muller MD Consults: 09/17/18 00:10 Consult to [facility] Attacher Routine Comment: Discharge provider: Lynette Verdin MD Summary Date Patient Seen: 09/19/18 Time Patient Seen: 08:45 Procedures: Repeat Hospital Course: The patient presented with active vaginal bleeding, thought to be due to her marginal placenta previa. heart tones were reassuring. She underwent ur gent repeat on 09/16/2018. The surgery was without complications, and she delivered a viable baby girl. , the patient recovered well. At the time of discharge she was voiding, ambulating, and passing flatus without difficulty. Her lochia was decreasing appropriately. Her pain was adequately controlled. She was breast-feeding with good latch and no significant nipple discomfort. The patient will follow up in 1 week with her primary care physician for removal of dressing and in 6 weeks for her check with Dr. Muller. Peripartum Data Infant Delivery Method: Section Procedures: Repeat complications: none [place] 1: Gender: Female Disposition of : home Discharge Diagnosis (1) S/P : Status: Acute Status at Discharge Cognitive/behavioral status at discharge: oriented Functional status at discharge: independent ambulation Overall status at discharge: patient is progressing back to baseline Time Spent with Patient Total time spent providing and/or coordinating discharge services: Greater than 30 minutes Objective Labs Result Diagrams: 09/17/18 06:20 Exam Vital Signs (past 8 hours): Oxygen Delivery Method Room Air Narrative Exam Narrative: General: No acute distress, sitting comfortably, appears well CV: Regular rate and rhythm, no murmurs Respiratory: Clear to auscultation bilaterally Abdomen: Soft, nontender, nondistended, dressing C/D/I, normoactive bowel sounds Extremities: Trace edema Discharge Plan Discharge Plan Patient Disposition: Home Discharge comment: Call with fever, chills, redness or drainage around incision or bleeding vaginally more than a pad in an hour Discharge Med Rec/Prescriptions Prescriptions: New oxycodone-acetaminophen [Percocet] 5-325 mg tablet 1 tab PO Q4-6H PRN (Reason: pain) Qty: 30 RF: 0 ibuprofen 600 mg tablet 600 mg PO TID PRN (Reason: pain) Qty: 20 RF: 2 Discontinued progesterone micronized 200 mg capsule 200 mg PO DAILY Qty: 30 RF: 2 heparin (porcine) 5,000 unit/mL syringe 5,000 unit SUBCUT BID Qty: 60 RF: 0 aspirin [Adult Aspirin Regimen] 81 mg tablet,delayed release (DR/EC) 81 mg PO DAILY RF: 0 Follow up/Referrals: Darlin Muller MD [Primary Care Provider] - 6 Weeks (Your 6wk follow up appointment with Dr. Muller is scheduled for @ 3:00pm. Your Aquacell dressing and incision check is to be done with Dr. Shirley on [place].) Provider Discharge Instructions Diet: Regular Activity: No heavy lifting No intercourse Skin/Wound/Dressing Care Report to your healthcare provider any signs of infection, such as:: chills, fever, increased pain, unusual drainage and unusual redness Dressing: PCP Dr. Kumar to remove in 1 week Visit Report/Discharge Packet Instructions: DI for Visit Report Forms: Stroke Signs & Symptoms Discharge Data Primary Care Provider: Darlin Muller Attending Provider: Darlin Muller Admit Date/Time: 09/16/18 20:48
[2018-09-19] MEDS: PRENATAL VIT,CALC/IRON/FOLIC 1 TABLET 1 TAB PO (09:23)
[2018-09-19] MEDS: DOCUSATE 250 MG CAPSULE PO (09:24)
[2018-09-19 11:02] VITALS: BP 99/68; PULSE 90; RESP 16; TEMP 36.3
== END 2018-09-19 12:45 | disposition home or self-care (01) | DRG 540 ==
PROVIDERS: Admitting Provider Obstetrics & Gynecology; PCP Obstetrics & Gynecology; Visit Provider Obstetrics & Gynecology
DX: O44.33 Partial placenta previa with hemorrhage, third trimester (principal); E72.12 Methylenetetrahydrofolate reductase deficiency; Z98.891 History of uterine scar from previous surgery; Z3A.38 38 weeks gestation of pregnancy; Z37.0 Single live birth; O99.284 Endocrine, nutritional and metabolic diseases complicating childbirth
CPT/HCPCS: 36415; 59050; 59514; 85025; 85461; 85610; 85730; 86850; 86900; 86901; J0131; J0690; J2274; J2405; J2590; J2765; J2790

== ENCOUNTER 2019-01-17 10:44 | Emergency (ER) | payer OTHER, MEDICAID, SELFPAY ==
[2019-01-17 11:00] VITALS: BP 109/71; PULSE 62; RESP 20; TEMP 36.2; O2SAT 100
--- NOTE | 2019-01-17 11:47 | DI.RAD.S_ITS ---
PROCEDURE: XR SHOULDER RT MIN 2V INDICATIONS: pain TECHNIQUE: 3 views of the shoulder were acquired. COMPARISON: None. FINDINGS: Bones: No fractures or dislocations. No suspicious bony lesions. Visualized ribs appear intact. Soft tissues: Multiple calcific densities over the humeral head, consistent with calcific tendinitis or intra-articular bodies. IMPRESSION: 1. Calcific tendinitis or intra-articular bodies in right shoulder. Dictated by: Mario Duque M.D. on 01/17/2019 at 12:51 Approved by: Mario Duque M.D. on 01/17/2019 at 12:56
[2019-01-17] MEDS: KETOROLAC 60 MG/2 ML VIAL IM (12:18)
[2019-01-17] MEDS: LIDOCAINE PATCH 1 EACH ADH..PATCH TOP (12:18)
[2019-01-17] MEDS: CYCLOBENZAPRINE 10 MG TABLET PO (12:18)
--- NOTE | 2019-01-17 12:22 | ED_ITS ---
HPI - Extremity Injury (Upper) <EMMA Mims-BC - Last Filed: 01/17/19 16:26> General Chief Complaint: Extremity Injury, Upper Stated Complaint: something wrong with r shoulder Time Seen by Provider: 01/17/19 11:41 Source: patient and family Mode of arrival: Ambulatory Limitations: no limitations History of Present Illness HPI narrative: The patient is a 43-year-old female history of 3 sections who presents with a chief complaint of right shoulder pain for the past 2 weeks. 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 She felt a twinge in the back of her shoulder. She states that her pain got better with some ibuprofen, but then got progressively worse over the past 3 days. She complains of decreased range of motion. No falls or trauma other than swatting at the bee. She states that she has been using Percocet for her pain, which is left over from her last 3 months ago. She states that the Percocet was initially effective, but is no longer effective. She states that she can use her right hand and arm well. She denies any rash or bruising to the area Related Data Previous Rx's Medication Instructions Recorded hydrocodone-acetaminophen 1 tab PO Q4-6H PRN #7 tab 01/17/19 ibuprofen [IBU] 800 mg PO Q6H PRN #40 tab 01/17/19 ondansetron 4 mg PO Q6H PRN #20 tab 01/17/19 Allergies Allergy/AdvReac Type Severity Reaction Status Date / Time No Known Drug Allergies Allergy Verified 07/04/18 21:08 Review of Systems <LEÓN Mims - Last Filed: 01/17/19 16:26> Review of Systems Narrative: GENERAL: Denies chills, fatigue, malaise, fever, sweats. HEENT: Denies sinus pain, ear pain, sore throat, difficulty swallowing, dizziness. RESPIRATORY: Denies dyspnea, cough, wheezing, hemoptysis, sputum. CARDIOVASCULAR: Denies chest pain, palpitations, orthopnea, edema, GASTROINTESTINAL: Denies nausea, vomiting, abdominal pain, diarrhea, constipation, melena. : Denies dysuria, frequency, incontinence, hematuria, urinary retention. MUSCULOSKELETAL: See HPI SKIN: See HPI NEUROLOGIC: Denies weakness, headache, numbness, change in speech, confusion, seizures, incoordination. PSYCHIATRIC: No concerning psychosocial issues. 12 point review of systems is negative except for those stated above PFSH <LAURIE Mims - Last Filed: 01/17/19 16:26> Medical History Cervical high risk HPV (human papillomavirus) test positive (Resolved) MTHFR (methylene THF reductase) deficiency and homocystinuria (Acute) 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, antepartum (Acute) Surgical History History of section (Acute) Social History Smoking Status: Never smoker Social History Smoking Status: Never smoker Exam <LAURIE Mims - Last Filed: 01/17/19 16:26> Narrative Exam Narrative: GENERAL: This is a well-nourished, well-developed patient, appears? HEAD: Atraumatic. Normocephalic. No temporal or scalp tenderness. EYES: Pupils equal round and reactive. Extraocular motions intact. No scleral icterus. No injection or drainage. ENT: Nose without bleeding, purulent drainage or septal hematoma. Throat without erythema, tonsillar hypertrophy or exudate. Uvula midline. Airway patent. NECK: Trachea midline. No JVD or lymphadenopathy. Supple, nontender, no meningeal signs. CARDIOVASCULAR: Regular rate RESPIRATORY: No cough. No increased respiratory effort. No accessory muscle use. GASTROINTESTINAL: Abdomen soft, non-tender, nondistended. No hepato- splenomegaly, or palpable masses. No guarding. EXTREMITIES: Generalized pain to palpation right shoulder. Patient is able to flex and extend right elbow and wrist. Positive radial pulse right hand. Cap refill less than 2 seconds. Good strength right hand. Patient refuses to do range of motion. BACK: Nontender without deformity or crepitance. No flank tenderness. NEURO: AOx3. SKIN: No rash or erythema. Ecchymosis laceration or abrasion noted on right shoulder. Initial Vital Signs Initial Vital Signs: Vital Signs Temperature 97.2 F L 01/17/19 11:00 Pulse Rate 62 01/17/19 11:00 Respiratory Rate 20 01/17/19 11:00 Blood Pressure 109/71 01/17/19 11:00 Pulse Oximetry 100 01/17/19 11:00 <Jessica Knight DO - Last Filed: 01/17/19 19:27> Initial Vital Signs Initial Vital Signs: Vital Signs Temperature 97.2 F L 01/17/19 11:00 Pulse Rate 62 01/17/19 11:00 Respiratory Rate 20 01/17/19 11:00 Blood Pressure 109/71 01/17/19 11:00 Pulse Oximetry 100 01/17/19 11:00 Course <EMMA Mims-BC - Last Filed: 01/17/19 16:26> Orders Ordered: ED Orders 01/17/19 11:47 XR shoulder RT min 2V Stat Discontinued Medications Hydrocodone Bitart/Acetaminophen ([place] 5/325) 1 tab PO NOW ONE Stop: 01/17/19 13:06 Last Admin: 01/17/19 13:18 Dose: 1 tab Documented by: DOLORES Cyclobenzaprine HCl (Flexeril) 10 mg PO NOW ONE Stop: 01/17/19 11:56 Last Admin: 01/17/19 12:18 Dose: 10 mg Documented by: DOLORES Ketorolac Tromethamine (Toradol) 60 mg IM NOW ONE Stop: 01/17/19 11:56 Last Admin: 01/17/19 12:18 Dose: 60 mg Documented by: DOLORES Lidocaine (Lidoderm) 1 each TOP NOW ONE Stop: 01/17/19 11:56 Last Admin: 01/17/19 12:18 Dose: 1 each Documented by: DOLORES Ondansetron HCl (Zofran Odt) 4 mg PO NOW ONE Stop: 01/17/19 12:23 Last Admin: 01/17/19 12:24 Dose: 4 mg Documented by: DOLORES Vital Signs Vital signs: Vital Signs - 8 hr 01/17/19 12:26 01/17/19 13:34 Pulse Rate 57 L Pulse Rate [Right Radial] 80 Respiratory Rate 16 Blood Pressure [Left Arm] 116/61 Pulse Oximetry 99 <DO Linda Esquivel Last Filed: 01/17/19 19:27> Orders Ordered: ED Orders 01/17/19 11:47 XR shoulder RT min 2V Stat Discontinued Medications Hydrocodone Bitart/Acetaminophen ([place] 5/325) 1 tab PO NOW ONE Stop: 01/17/19 13:06 Last Admin: 01/17/19 13:18 Dose: 1 tab Documented by: DOLORES Cyclobenzaprine HCl (Flexeril) 10 mg PO NOW ONE Stop: 01/17/19 11:56 Last Admin: 01/17/19 12:18 Dose: 10 mg Documented by: DOLORES Ketorolac Tromethamine (Toradol) 60 mg IM NOW ONE Stop: 01/17/19 11:56 Last Admin: 01/17/19 12:18 Dose: 60 mg Documented by: DOLORES Lidocaine (Lidoderm) 1 each TOP NOW ONE Stop: 01/17/19 11:56 Last Admin: 01/17/19 12:18 Dose: 1 each Documented by: DOLORES Ondansetron HCl (Zofran Odt) 4 mg PO NOW ONE Stop: 01/17/19 12:23 Last Admin: 01/17/19 12:24 Dose: 4 mg Documented by: DOLORES Vital Signs Vital signs: Vital Signs - 8 hr 01/17/19 12:26 01/17/19 13:34 Pulse Rate 57 L Pulse Rate [Right Radial] 80 Respiratory Rate 16 Blood Pressure [Left Arm] 116/61 Pulse Oximetry 99 MDM - Extremity Injury (Upper) <LAURIE Mims - Last Filed: 01/17/19 16:26> Imaging Data shoulder xray : Radiologist's impression: [address] [address] XRay Report Signed Patient: Roxana Patel KMR#: [id number] : 1975Acct:[id number] Age/Sex: 43 / FDate of Service: 01/17/19 Loc: ED Accession Number: [id number] Procedure: XR shoulder RT min 2V Ordering Provider: Jessica Alfred PROCEDURE: XR SHOULDER RT MIN 2V INDICATIONS: pain TECHNIQUE: 3 views of the shoulder were acquired. COMPARISON: None. FINDINGS: Bones: No fractures or dislocations. No suspicious bony lesions. Visualized ribs appear intact. Soft tissues: Multiple calcific densities over the humeral head, consistent with calcific tendinitis or intra-articular bodies. IMPRESSION: 1. Calcific tendinitis or intra-articular bodies in right shoulder. Dictated by: Mario Duque M.D. on 01/17/2019 at 12:51 Approved by: Mario Duque M.D. on 01/17/2019 at 12:56 MDM Narrative Medical decision making narrative: The patient is a 43-year-old female who presents with a chief complaint of right shoulder pain. Given her use of her shoulder for her job, and her exam, I suspected a tendinitis. She has no indication of a possible rotator cuff injury. X-ray indicates calcific tendonitis. I discussed at length pain medications, anti-inflammatories etc. Encouraged rest and ice. Encouraged follow-up with primary care provider and discuss the potential for joint injections. Patient was also given lidocaine patch, Toradol Flexeril and [place] in the emergency department. I discussed at length rest ice and follow up with primary care provider. Patient has no questions or concerns upon discharge and states understanding of plan of care as well as return precautions Discharge Plan Departure Patient Disposition: Home Clinical Impression: Calcific tendonitis Discharge Date/Time: 01/17/19 13:46 Instructions: Calcific Tendonitis of the Shoulder, How To Perform RICE (Rest, Ice, Compress, Elevate), DI for Calcific Tendonitis of the Shoulder Activity Restrictions/Additional Instructions: Your x-ray today shows calcific tendinitis of your shoulder. This is often an overuse injury. Treatment for this includes oral anti-inflammatories ice rest and follow-up care. Follow-up options include joint injections. I have given you a prescription for Zofran for nausea, which can be used every 6 hours as needed for nausea. I have given you a prescription of [place], which can be used every 4-6 hours as needed for pain. This is a narcotic that can be constipating, can be sedating. Do not take and drive. I have given you a prescription of ibuprofen which can be used every 6 hours as needed. Do not combine this with any other NSAIDs such as [id number] ibuprofen Aleve etc. This is the safest NSAID for . Please also use ice and rest. Please follow up with primary care provider as well as [facility] if desired Prescriptions: New ibuprofen [IBU] 800 mg tablet 800 mg PO Q6H PRN (Reason: pain) Qty: 40 RF: 0 hydrocodone-acetaminophen 5-325 mg tablet 1 tab PO Q4-6H PRN (Reason: pain) Qty: 7 RF: 0 ondansetron 4 mg tablet,disintegrating 4 mg PO Q6H PRN (Reason: nausea and vomiting) Qty: 20 RF: 0 Referrals: [facility] [Provider Group] Sammie Kumar MD [Primary Care Provider] -
[2019-01-17] MEDS: ONDANSETRON 4 MG ODT PO (12:24)
[2019-01-17 12:26] VITALS: PULSE 80
[2019-01-17] MEDS: HYDROCODONE/ACET 5/325 TABLET 1 TAB PO (13:18)
[2019-01-17 13:34] VITALS: BP 116/61; PULSE 57; RESP 16; O2SAT 99
== END 2019-01-17 13:46 | disposition home or self-care (01) ==
PROVIDERS: Emergency Provider Nurse Practitioner Family; PCP Family Medicine
DX: M65.20 Calcific tendinitis, unspecified site (principal)
CPT/HCPCS: 73030; 96372; 99282; 99283; J1885

== ENCOUNTER → 2022-01-03 06:54 | Outpatient (CLI) | payer OTHER, MEDICAID, SELFPAY ==
[2022-01-03 19:40] LABS: COVID19 - ORCAS (NP or Nasal) Negative (Negative)
== END ==
PROVIDERS: PCP Family Medicine; Visit Provider Family Medicine
DX: Z01.812 Encounter for preprocedural laboratory examination (principal); Z20.822 Contact with and (suspected) exposure to COVID-19
CPT/HCPCS: C9803; U0003